=== PATIENT | female | born 1945 | race Caucasian/White ===

== ENCOUNTER 2021-08-21 06:14 | Day surgery (SDC) | payer BC ==
[~2021-08-21] VITALS: Ht 157.5 cm; Wt 62.7 kg
[~2021-08-21 06:14] MED LIST: CALCIT950 PO; CHOL10002 PO; Calcium 600 MG1 EACH PO; ESTRTP VAG; GABA300 PO; HYDACE5325 PO; HYDR1TAB94 PO; LORA10 PO; LORA10ER PO; MULVITMIND PO; Multiple Vitam1 EAC1 PO; RXHYD5325 PO; TIZANIDINE HCL2 M5 PO; VITAMIN D35000 UNI1 PO
--- NOTE | 2021-08-21 07:13 | NUR ---
Ambulatory in Day Surgery. History, Chart, Medications and Allergies reviewed before start of procedure.Lungs clear T/O to Auscultation. Patient confirms NPO status and agrees with scheduled surgery. Pre-Op teaching done. Pt verbalizes understanding.
--- NOTE | 2021-08-21 16:56 | NUR ---
PT REPORTED FEELING THAT HER BLOOD GLUCOSE MAY BE LOW. SPOT CHECKED AND WAS FOUND TO BE 126.
--- NOTE | 2021-08-21 18:19 | NUR ---
SHIFT SUMMARY PT IS POD#1 FROM L CADY. PAIN MANAGED WITH PO AND IV PAIN MEDICATION. PT WORKED WITH THERAPY X1; SHE IS A 1 PERSON ASSIST WITH GAIT BELT AND WALKER. SHE IS TOLERATING PO. VSS. WILL MONITOR UNTIL REPORT TO NOC RN.
[2021-08-22 05:48] LABS: BASOPHILS ABSOLUTE AUTO 0.01 K/mm3 (0.00-0.23); BASOPHILS PERCENT AUTO 0 % (0-2); EOSINOPHILS ABSOLUTE AUTO 0.03 K/mm3 (0.00-0.68); EOSINOPHILS PERCENT AUTO 0 % (0-6); Hematocrit 31.3 % (33.0-51.0); Hemoglobin 10.3 g/dL (11.5-16.0); IMMATURE GRAN ABSOLUTE AUTO 0.02 K/mm3 (0.00-0.10); IMMATURE GRAN PERCENT AUTO 0 % (0-1); LYMPHOCYTES ABSOLUTE AUTO 1.75 K/mm3 (0.84-5.20); LYMPHOCYTES PERCENT AUTO 20 % (21-46); MONOCYTES ABSOLUTE AUTO 0.87 K/mm3 (0.16-1.47); MONOCYTES PERCENT AUTO 10 % (4-13); Mean Corpuscular HGB 31.9 pg (26.0-34.0); Mean Corpuscular HGB Conc 32.9 g/dL (31.5-36.5); Mean Corpuscular Volume 97 fL (80-100); Mean Platelet Volume 10.6 fL (9.1-12.4); NEUTROPHILS ABSOLUTE AUTO 5.95 K/mm3 (1.96-9.15); NEUTROPHILS PERCENT AUTO 69 % (41-73); Platelet Count 236 K/mm3 (150-400); RDW Coefficient Variation 12.3 % (11.7-14.2); RDW Standard Deviation 43.9 fL (35.1-46.3); Red Blood Cell Count 3.23 M/mm3 (3.80-5.20); White Blood Cell Count 8.63 K/mm3 (4.00-11.30)
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
[2021-08-22 06:33] LABS: Anion Gap 5 mmol/L (6-16); Blood Urea Nitrogen 11 mg/dL (8-24); Bun/Creatinine Ratio 14.5 (12.0-20.0); CO2, Blood 32 mmol/L (21-32); Calcium, Blood 9.3 mg/dL (8.5-10.1); Chloride, Blood 104 mmol/L (98-108); Creatinine, Blood 0.76 mg/dL (0.40-1.00); Glomerular Filtration Rate >60 (60-); Glucose, Blood 99 mg/dL (70-99); Magnesium, Blood 2.3 mg/dL (1.6-2.4); Potassium, Blood 4.4 mmol/L (3.5-5.5); Sodium, Blood 141 mmol/L (136-145)
--- NOTE | 2021-08-22 09:17 | NUR ---
PT HAD 400 ML EMESIS. MEDICATED PER ORDERS FOR N/V W/ZOFRAN. PT STATED HAD BEEN NAUSEATED T/O NIGHT. REPORTED HAS TAKEN HYDROCODONE PREVIOUSLY W/O PROBLEM. CALLED AND LM FOR DR ALDRICH ASKING IF CAN CHANGE PT TO [facility] FOR PAIN AND IF MAY GET A PRESCRIPTION. PT NOW AMBULATING IN [place] W/THERAPY.
--- NOTE | 2021-08-22 10:32 | NUR ---
08/22/21 1032 Charisse Rico VERIFICATIONS: EDIT CHART.
[2021-08-22] MEDS ORDERED: ASPI81CH PO (10:39)
--- NOTE | 2021-08-22 11:22 | NUR ---
DISCHARGING PT TO [facility] MA[facility] FITTER HELPER PAIN PRESCRIPTION AT DR ALDRICH' OFFICE. DC'D IV, CATHETER INTACT. PT CLEARED THERAPY. REPORTS NAUSEA RESOLVED AND PAIN TOLERABLE. REVIEWED DC INSTRUCTIONS; PT VERBALIZED UNDERSTANDING. PROVIDED DRESSING CHANGES. POLAR PACK AND POSSESSIONS PACKED, AWAITING WHEEL CHAIR RIDE OUT.
--- NOTE | 2021-08-22 11:33 | NUR ---
PT LEFT UNIT IN WC W/POSSESSIONS, DC PAPERWORK, POLAR PACK AND DRESSINGS TO RIDE WAITING OUTSIDE.
== END 2021-08-22 11:29 | disposition home or self-care (01) ==
LOC: ORSCMMR 06:14 → SURS 11:51 → ORSCMMR 08-22 11:29 → ORD 08-28 12:15 → ORSCMMR 08-28 12:15
PROVIDERS: Orthopaedic Surgery
PROC: 0SRB0J9 Replacement of Left Hip Joint with Synthetic Substitute, Cemented, Open Approach (ICD-10-PCS; principal; 2021-08-21 07:30)
DX: M16.12 Unilateral primary osteoarthritis, left hip (principal); Z79.899 Other long term (current) drug therapy
CPT/HCPCS: 36415; 72170; 80048; 82947; 83735; 85025; 97110; 97116; 97162; 97530; A9270; C1776; J0171; J0690; J0735; J1100; J1170; J1885; J2250; J2370; J2405; J2704; J2795; J3010; J7120

== ENCOUNTER 2021-10-16 06:00 | Day surgery (SDC) | payer BC ==
[~2021-10-16] VITALS: Ht 157.5 cm; Wt 63.2 kg
[~2021-10-16 06:00] MED LIST changes: +ASPI81CH PO; +Norco 7.5-3251 EACH PO
--- NOTE | 2021-10-16 12:03 | NUR ---
PT ARRIVED FROM RECOVERY A&OX4, VSS/RA, WIGGLES TOES/MOVES LEGS/REPOSITIONS SELF WELL, DENIES N&T IN ALL EXT'S. STAND PIVOT WITH 2 PP FWW & GB FROM BED TO BSC, THEN UP TO CHAIR FOR LUNCH.
--- NOTE | 2021-10-16 15:27 | NUR ---
SHIFT SUMMARY PT A&OX4, VSS/RA, S/P R CADY, DERMABOND PRINEO DRESSING CDI. PAIN MANAGED WITH NORCO 5, TYLENOL AND TORADOL. LR @ 70 SL, IV ABX Q6 PER EMAR. NAVI PO. AMB SBA W/FWW & GB, WBAT, TO BRP, UP TO CHAIR, SCDS/TEDS/POLAR [place] ON; PHYSICAL THERAPY EVAL'D AND WILL BE BACK IN THE AM. WILL REPORT TO ARETHA JONES RN.
--- NOTE | 2021-10-16 23:59 | NUR ---
After explaining the benefits of SCD's, patient still refused to keep them on.
--- NOTE | 2021-10-17 00:27 | NUR ---
PT. REFUSED IV ANTIBIOTIC SHE SAID IT HURT SO BAD WHEN IT WAS GIVEN BY DAYSHIFT RN & ALSO WHEN TORADOL IV WAS GIVEN AT MIDNIGHT, THE SAME PAIN PT. WAS EXPERIENCING, IV ACCESS IS NOT INFILTRATED. PT. REFUSED TO TAKE IV TORADOL AT 6 AM.
--- NOTE | 2021-10-17 03:21 | NUR ---
SHIFT SUMMARY: PT. AOX4, AMBULATES TO THE BATHROOM & HALLWAY WITH FWW & GAITBELT ON SBA. R HIP INCISION WITH DERMABOND & PRINEO DRESSING CDI. REQUESTED TO REMOVE IV TO L WRIST RELATED TO SENSITIVITY TO MEDS GIVEN. NEW IV TO R AC, PT. TOLERATED WELL. POLAR PACK PLACED. NO ACUTE CHANGES NOTED, WILL CONTINUIE TO MONITOR.
[2021-10-17 04:39] LABS: BASOPHILS ABSOLUTE AUTO 0.03 K/mm3 (0.00-0.23); BASOPHILS PERCENT AUTO 0 % (0-2); EOSINOPHILS ABSOLUTE AUTO 0.06 K/mm3 (0.00-0.68); EOSINOPHILS PERCENT AUTO 1 % (0-6); Hematocrit 27.9 % (33.0-51.0); Hemoglobin 9.1 g/dL (11.5-16.0); IMMATURE GRAN ABSOLUTE AUTO 0.01 K/mm3 (0.00-0.10); IMMATURE GRAN PERCENT AUTO 0 % (0-1); LYMPHOCYTES ABSOLUTE AUTO 1.62 K/mm3 (0.84-5.20); LYMPHOCYTES PERCENT AUTO 23 % (21-46); MONOCYTES ABSOLUTE AUTO 0.75 K/mm3 (0.16-1.47); MONOCYTES PERCENT AUTO 11 % (4-13); Mean Corpuscular HGB 31.4 pg (26.0-34.0); Mean Corpuscular HGB Conc 32.6 g/dL (31.5-36.5); Mean Corpuscular Volume 96 fL (80-100); Mean Platelet Volume 10.3 fL (9.1-12.4); NEUTROPHILS ABSOLUTE AUTO 4.51 K/mm3 (1.96-9.15); NEUTROPHILS PERCENT AUTO 65 % (41-73); Platelet Count 214 K/mm3 (150-400); RDW Coefficient Variation 12.8 % (11.7-14.2); RDW Standard Deviation 44.9 fL (35.1-46.3); White Blood Cell Count 6.98 K/mm3 (4.00-11.30)
[2021-10-17 04:58] LABS: Anion Gap 3 mmol/L (6-16); Blood Urea Nitrogen 14 mg/dL (8-24); Bun/Creatinine Ratio 18.7 (12.0-20.0); CO2, Blood 30 mmol/L (21-32); Calcium, Blood 8.3 mg/dL (8.5-10.1); Chloride, Blood 107 mmol/L (98-108); Creatinine, Blood 0.75 mg/dL (0.40-1.00); Glomerular Filtration Rate >60 (60-); Glucose, Blood 112 mg/dL (70-99); Magnesium, Blood 1.9 mg/dL (1.6-2.4); Potassium, Blood 3.7 mmol/L (3.5-5.5); Sodium, Blood 140 mmol/L (136-145)
--- NOTE | 2021-10-17 06:15 | NUR ---
TORADOL GIVEN 2 HRS EARLY THAN EMAR SCHEDULE IT WAS GIVEN 2 HRS. EARLY THAN EMAR SCHEDULE DURING DAYSHIFT & PE PT'S REQUEST WELL,
[2021-10-17] MEDS ORDERED: HYDROCODONE-AC1 EA10 PO (09:53)
[2021-10-17] MEDS ORDERED: ACET500 PO (09:54)
[2021-10-17] MEDS ORDERED: ASPIR 8181 M1 PO (09:55)
--- NOTE | 2021-10-17 10:45 | NUR ---
Pt. was sitting in a recliner, waiting to be discharged. Pt. is pleasant with no apparent concerns. Trhough therapuetic listening identify that Pt. has a strong sil support system, and anticipates embrace home PT with vigor. Pt. verbalized gratitude for the spiritual care visit.
--- NOTE | 2021-10-17 11:00 | NUR ---
DISCHARGE PT PROVIDED WITH VERBAL AND WRITTEN DISCHARGE INSTRUCTIONS, SHE VERBALIZED UNDERSTANDING. PT SENT HOME WITH A CLEAN AQUACEL DRESSING TO USE DIRECTED. PRESCRIPTION FOR PAIN MEDICATION PROVIDED BY DR. ALDRICH. PT ESCORTED OUT IN W/C BY MURPHY DEMARCO.
== END 2021-10-17 10:59 | disposition home or self-care (01) ==
LOC: ORSCMMR 06:00 → ORD 07:30 → ORSCMMR 07:30 → SURS 11:32 → ORSCMMR 10-17 10:59
PROVIDERS: Orthopaedic Surgery
PROC: 0SR90JA Replacement of Right Hip Joint with Synthetic Substitute, Uncemented, Open Approach (ICD-10-PCS; principal; 2021-10-16 07:30)
DX: M16.11 Unilateral primary osteoarthritis, right hip (principal); Z96.642 Presence of left artificial hip joint; Z79.899 Other long term (current) drug therapy
CPT/HCPCS: 36415; 72170; 80048; 83735; 85025; 97110; 97116; 97162; 97530; A9270; C1776; J0171; J0690; J0735; J1100; J1885; J2250; J2370; J2405; J2704; J2795; J3010; J7120